=== PATIENT | female | born 1950 | race Caucasian/White ===

== ENCOUNTER 2019-03-21 01:37 | Emergency (ER) | payer MEDICARE, OTHER ==
[~2019-03-21] VITALS: Ht 165.1 cm; Wt 68.0 kg
[2019-03-21 03:02] LABS: Source, Urine Clean Catch
[2019-03-21 03:11] LABS: Blood, Urine 4+ (Neg); Glucose Qualitative, Urine Neg (Neg); Ketones, Urine Neg (Neg); Leukocyte Esterase, Urine 3+ (Neg); Nitrite, Urine Pos (Neg); Protein, Urine 2+ (Neg); Specific Gravity, Urine 1.015 (1.003-1.022); Urobilinogen, Urine 3+ (Normal)
[2019-03-21 03:12] LABS: Appearance, Urine Hazy (Clear); BASOPHILS ABSOLUTE AUTO 0.03 K/mm3 (0.00-0.23); BASOPHILS PERCENT AUTO 0 % (0-2); Bilirubin, Urine 2+ (Neg); Color, Urine Orange (P-Yellow); EOSINOPHILS ABSOLUTE AUTO 0.17 K/mm3 (0.00-0.68); EOSINOPHILS PERCENT AUTO 2 % (0-6); Hematocrit 46.2 % (33.0-51.0); Hemoglobin 15.3 g/dL (11.5-16.0); IMMATURE GRAN ABSOLUTE AUTO 0.02 K/mm3 (0.00-0.10); IMMATURE GRAN PERCENT AUTO 0 % (0-1); LYMPHOCYTES ABSOLUTE AUTO 2.27 K/mm3 (0.84-5.20); LYMPHOCYTES PERCENT AUTO 26 % (21-46); MONOCYTES ABSOLUTE AUTO 0.82 K/mm3 (0.16-1.47); MONOCYTES PERCENT AUTO 9 % (4-13); Mean Corpuscular HGB Conc 33.1 g/dL (31.5-36.5); Mean Corpuscular Volume 97 fL (80-100); Mean Platelet Volume 9.6 fL (9.1-12.4); NEUTROPHILS ABSOLUTE AUTO 5.45 K/mm3 (1.96-9.15); NEUTROPHILS PERCENT AUTO 62 % (41-73); Platelet Count 202 K/mm3 (150-400); RDW Coefficient Variation 13.3 % (11.7-14.2); RDW Standard Deviation 48.1 fL (35.1-46.3); Red Blood Cell Count 4.78 M/mm3 (3.80-5.20); White Blood Cell Count 8.76 K/mm3 (4.00-11.30)
[2019-03-21 03:19] LABS: White Blood Cells, Urine TNTC /hpf (0-5)
[2019-03-21 03:20] LABS: Bacteria Mod /hpf; Squamous Epithelial Cells Few /hpf (Few)
[2019-03-21 03:25] LABS: Alanine Aminotransfer (ALT/SGP 51 U/L (12-78); Albumin, Blood 4.6 g/dL (3.4-5.0); Albumin/Globulin Ratio 0.9 (0.8-1.8); Alk Phos 93 U/L (50-136); Anion Gap 8 mmol/L (6-16); Aspartate Aminotrans (AST/SGOT 41 U/L (12-37); Blood Urea Nitrogen 16 mg/dL (8-24); CO2, Blood 26 mmol/L (21-32); Calcium, Blood 9.1 mg/dL (8.5-10.1); Chloride, Blood 106 mmol/L (98-108); Creatinine, Blood 0.84 mg/dL (0.40-1.00); Glomerular Filtration Rate >60 (60-); Glucose, Blood 115 mg/dL (70-99); Potassium, Blood 3.8 mmol/L (3.5-5.5); Sodium, Blood 140 mmol/L (136-145); Total Protein, Blood 9.6 g/dL (6.4-8.2)
[2019-03-21] MEDS ORDERED: Bactrim Ds Tab1 EACH PO (04:40)
[2019-06-21] MEDS ORDERED: Hair, Skin & N1 EACH PO (16:56)
[2019-06-21] MEDS ORDERED: Acidophilus1 EAC1 PO (16:56)
[2019-06-21] MEDS ORDERED: Estrace Vagin42.5 GM VAG (16:56)
[2019-06-25] MEDS ORDERED: ACET325 PO ×2 (15:03→15:09)
[2019-06-25] MEDS ORDERED: CENTRUM SILVER1 EAC2 PO (15:09)
== END 2019-03-21 05:00 | disposition home or self-care (01) ==
LOC: ER 01:37
PROVIDERS: Emergency Medicine
DX: N39.0 Urinary tract infection, site not specified (principal)
CPT/HCPCS: 36415; 80053; 81001; 85025; 87077; 87086; 87186; 96365; 96375; 99283-25; J0696; J1885; J7030

== ENCOUNTER → 2019-05-14 | Outpatient (CLI) | payer MEDICARE, OTHER ==
[~2019-05-14] MED LIST: ACET325 PO; Acidophilus1 EAC1 PO; Bactrim Ds Tab1 EACH PO; CENTRUM SILVER1 EAC2 PO; Estrace Vagin42.5 GM VAG; Hair, Skin & N1 EACH PO; MIRALAX17 GM PO
[2019-05-17 15:07] LABS: HPV 16 Negative (Negative); HPV 18 Negative (Negative); HPV OTHER HR TYPES Negative (Negative)
== END | disposition home or self-care (01) ==
LOC: LAB SHORT 05-13 10:37 → LAB 09:30 → LAB SHORT 09:30
PROVIDERS: Nurse Practitioner Women's Health
DX: Z12.4 Encounter for screening for malignant neoplasm of cervix (principal)
CPT/HCPCS: 87624; G0123

== ENCOUNTER 2019-06-24 05:46 | Day surgery (SDC) | payer MEDICARE, OTHER ==
[~2019-06-24] VITALS: Ht 160 cm; Wt 80.4 kg
[~2019-06-24 05:46] MED LIST changes: -ACET325 PO; -CENTRUM SILVER1 EAC2 PO; -MIRALAX17 GM PO
--- NOTE | 2019-06-24 06:33 | NUR ---
PT ADMITTED TO [facility]. AGREES WITH PLANNED SURGERY. LUNG SOUNDS CLEAR.
[2019-06-24 15:03] LABS: BASOPHILS ABSOLUTE AUTO 0.01 K/mm3 (0.00-0.23); BASOPHILS PERCENT AUTO 0 % (0-2); EOSINOPHILS PERCENT AUTO 0 % (0-6); Hemoglobin 13.2 g/dL (11.5-16.0); IMMATURE GRAN ABSOLUTE AUTO 0.02 K/mm3 (0.00-0.10); IMMATURE GRAN PERCENT AUTO 0 % (0-1); LYMPHOCYTES ABSOLUTE AUTO 0.67 K/mm3 (0.84-5.20); LYMPHOCYTES PERCENT AUTO 8 % (21-46); MONOCYTES ABSOLUTE AUTO 0.11 K/mm3 (0.16-1.47); MONOCYTES PERCENT AUTO 1 % (4-13); Mean Corpuscular HGB 32.4 pg (26.0-34.0); Mean Corpuscular HGB Conc 34.7 g/dL (31.5-36.5); Mean Corpuscular Volume 93 fL (80-100); Mean Platelet Volume 9.2 fL (9.1-12.4); NEUTROPHILS ABSOLUTE AUTO 7.48 K/mm3 (1.96-9.15); NEUTROPHILS PERCENT AUTO 90 % (41-73); Platelet Count 173 K/mm3 (150-400); RDW Coefficient Variation 13.2 % (11.7-14.2); RDW Standard Deviation 45.1 fL (35.1-46.3); Red Blood Cell Count 4.07 M/mm3 (3.80-5.20); White Blood Cell Count 8.29 K/mm3 (4.00-11.30)
--- NOTE | 2019-06-24 18:25 | NUR ---
Summary: Deanna was admitted to surgical floor from PACU after having anterior and posterior repair. She reports 5/10 pain, mostly complaining of pain in her rectum and a feeling of constipation. The most effective pain relief has been repositioning, she has declined ice. She is able to make her needs known. No new drainage since admit, vaginal packing in place. Turcios draining clear, yellow urine. She is tolerating a regular diet well. IV to right forearm patent, saline locked. at bedside. PAS in place. VSS.
[2019-06-25 05:29] LABS: BASOPHILS ABSOLUTE AUTO 0.01 K/mm3 (0.00-0.23); BASOPHILS PERCENT AUTO 0 % (0-2); EOSINOPHILS ABSOLUTE AUTO 0.04 K/mm3 (0.00-0.68); EOSINOPHILS PERCENT AUTO 0 % (0-6); Hematocrit 36.6 % (33.0-51.0); Hemoglobin 12.3 g/dL (11.5-16.0); IMMATURE GRAN ABSOLUTE AUTO 0.03 K/mm3 (0.00-0.10); IMMATURE GRAN PERCENT AUTO 0 % (0-1); LYMPHOCYTES ABSOLUTE AUTO 2.17 K/mm3 (0.84-5.20); LYMPHOCYTES PERCENT AUTO 22 % (21-46); MONOCYTES ABSOLUTE AUTO 0.84 K/mm3 (0.16-1.47); MONOCYTES PERCENT AUTO 8 % (4-13); Mean Corpuscular HGB 31.9 pg (26.0-34.0); Mean Corpuscular HGB Conc 33.6 g/dL (31.5-36.5); Mean Corpuscular Volume 95 fL (80-100); Mean Platelet Volume 9.6 fL (9.1-12.4); NEUTROPHILS ABSOLUTE AUTO 6.89 K/mm3 (1.96-9.15); NEUTROPHILS PERCENT AUTO 69 % (41-73); Platelet Count 171 K/mm3 (150-400); RDW Coefficient Variation 13.1 % (11.7-14.2); RDW Standard Deviation 45.6 fL (35.1-46.3); Red Blood Cell Count 3.85 M/mm3 (3.80-5.20); White Blood Cell Count 9.98 K/mm3 (4.00-11.30)
--- NOTE | 2019-06-25 06:29 | NUR ---
VAGINAL PACKING AND PENALOZA CATH D/C'D AT 0610. PT SAMANTHA WELL. NEW RUFINO PAD PLACED. PT EDUCATED ON PLAN TO MONITOR FOR VOID AND PVR.
--- NOTE | 2019-06-25 07:08 | NUR ---
RECVD REPORT FROM PREVIOUS RN MILLICENT
--- NOTE | 2019-06-25 07:22 | NUR ---
Patient Alert and oriented x4. Complaints of mild pain, medicated as ordered. Patient became nauseated after pain medication, given zofran. Ambulated in hallway. Turcios catheter and packing removed. Due to void.
[2019-06-25] MEDS ORDERED: ACET325 PO ×4 (15:03→15:09)
[2019-06-25] MEDS ORDERED: CENTRUM SILVER1 EAC2 PO ×2 (15:09)
--- NOTE | 2019-06-25 15:34 | NUR ---
Patient up to Ambulate independently. Gait steady. Discharge instructions reviewed with patient. Patient verbalizes understanding. Copy given to patient to take home. Peripheral IV removed from right arm. at bedside. Discharge packet sent home with pt. She states she already has a follow-up appt scheduled with Dr. Reaves. Personal belongings taken home with pt. Patient States Post-Procedure ride home has been arranged. Discharged via wheelchair to private car for ride home.
== END 2019-06-25 15:37 | disposition home or self-care (01) ==
LOC: ORSCMMR 05:46 → ORD 07:30 → SURS 10:30 → ORSCMMR 06-25 15:37
PROVIDERS: Obstetrics & Gynecology Gynecology
PROC: 0JQC0ZZ Repair Pelvic Region Subcutaneous Tissue and Fascia, Open Approach (ICD-10-PCS; principal; 2019-06-24 07:30)
PROC: 0TSD0ZZ Reposition Urethra, Open Approach (ICD-10-PCS; principal; 2019-06-24 07:30)
DX: N81.12 Cystocele, lateral (principal); N81.6 Rectocele; N39.3 Stress incontinence (female) (male)
CPT/HCPCS: 36415; 85025; C1771; J0690; J1100; J1885; J2250; J2405; J2704; J3010; J7120

== ENCOUNTER 2019-06-27 13:06 | Emergency (ER) | payer MEDICARE, OTHER ==
[~2019-06-27] VITALS: Ht 160 cm; Wt 81.7 kg
[~2019-06-27 13:06] MED LIST changes: +ACET325 PO; +CENTRUM SILVER1 EAC2 PO
[2019-06-27 17:16] LABS: Source, Urine Clean Catch
[2019-06-27 17:27] LABS: Bilirubin, Urine Neg (Neg); Blood, Urine 5+ (Neg); Glucose Qualitative, Urine Neg (Neg); Ketones, Urine Neg (Neg); Leukocyte Esterase, Urine 2+ (Neg); Nitrite, Urine Neg (Neg); Protein, Urine Neg (Neg); Specific Gravity, Urine 1.005 (1.003-1.022); Urobilinogen, Urine NORM (Normal)
[2019-06-27 17:34] LABS: Appearance, Urine Hazy (Clear); Color, Urine Yellow (P-Yellow)
[2019-06-27 17:38] LABS: Squamous Epithelial Cells Few /hpf (Few)
[2019-06-27 17:39] LABS: Bacteria Few /hpf
[2019-06-27] MEDS ORDERED: MIRALAX17 GM PO (18:37)
== END 2019-06-27 19:11 | disposition home or self-care (01) ==
LOC: ER 13:06
PROVIDERS: Emergency Medicine
DX: K59.00 Constipation, unspecified (principal); Z48.816 Encounter for surgical aftercare following surgery on the genitourinary system
CPT/HCPCS: 81001; 87086; 99283